=== PATIENT | male | born 1975 | race Caucasian/White ===

== ENCOUNTER 2016-06-26 00:21 | Emergency (ER) | payer OTHER ==
[~2016-06-26] VITALS: Ht 172.7 cm; Wt 127.0 kg
--- NOTE | 2016-06-26 00:44 | NUR ---
Patient to ER bed 7 to gown for evaluation. Side rails up. Report given to [place] [facility].
[2016-06-26 00:45] VITALS: BP 157/93; PULSE 85; RESP 16; TEMP 98.5; O2SAT 98
--- NOTE | 2016-06-26 00:55 | NUR ---
Patient to ER C/O severe sore throat "cant swallow, cant eat" denies fever, states is been worse for the past 3 days. AAOx4, unlabored breathing, no signs of acute distress.
--- NOTE | 2016-06-26 00:56 | NUR ---
ER MD Klein at bedside for evaluation
--- NOTE | 2016-06-26 01:52 | NUR ---
Patient calm on gurney, no signs of acute distress.
[2016-06-26] MEDS ORDERED: IBUPROFEN 800 MG TABLET PO ONE (02:15)
[2016-06-26] MEDS ORDERED: PREDNISONE 20 MG TABLET PO ONE (02:15)
[2016-06-26] MEDS ORDERED: LIDOCAINE VISCOUS 2%, 15 ML UDC MM ONE (02:15)
[2016-06-26] MEDS ORDERED: cefTRIAXone 2 GM VIAL IM ONE (02:15)
[2016-06-26] MEDS ORDERED: LIDOCAINE 1%, 20 ML MDV 20 ML ONE (02:19)
[2016-06-26 02:49] VITALS: BP 134/81; PULSE 83; RESP 16; TEMP 98.6; O2SAT 96
--- NOTE | 2016-06-26 02:49 | NUR ---
Patient given written and verbal discharge instructions and verbalizes understanding. ER MD Klein discussed with patient the results and treatment provided. Patient in stable condition. ID arm band removed. Rx of amoxicillin, lidocaine, amoxicillin given. Patient educated on pain management and to follow up with PMD. Pain Scale 0/10. Opportunity for questions provided and answered.
== END 2016-06-26 02:49 | disposition home or self-care (01) ==
LOC: SED 00:21
DX: K12.2 Cellulitis and abscess of mouth (principal); E66.01 Morbid (severe) obesity due to excess calories; E11.9 Type 2 diabetes mellitus without complications; M10.9 Gout, unspecified; Z68.45 Body mass index [BMI] 70 or greater, adult
CPT/HCPCS: 96372; 99283; J0696; J2001 ×2; J7512